=== PATIENT | female | born 1985 | race Caucasian/White ===

== ENCOUNTER 2016-10-14 03:43 | Emergency (ER) | payer OTHER ==
[~2016-10-14] VITALS: Ht 165.1 cm; Wt 83.9 kg
[~2016-10-14 03:43] MED LIST: LEXA1TAB PO; MOTR200T44 PO; PRENTAB7 PO; PRIL40CA PO; TYLE167L PO
[2016-10-14] MEDS ORDERED: WELLTAB40 PO (04:17)
[2016-10-14] MEDS ORDERED: AUGM500T34 PO (05:29)
[2016-10-14] MEDS ORDERED: AUGMENTIN 875 MG TAB PO ONE (05:30)
[2016-10-14 05:36] VITALS: BP 109/66
== END 2016-10-14 05:51 | disposition home or self-care (01) ==
LOC: M ED 05:36
DX: H66.91 Otitis media, unspecified, right ear (principal); F32.1 Major depressive disorder, single episode, moderate

== ENCOUNTER 2016-10-21 21:40 | Emergency (ER) | payer OTHER ==
[~2016-10-21] VITALS: Ht 165.1 cm; Wt 80.7 kg
[~2016-10-21 21:40] MED LIST changes: +AUGM500T34 PO; +WELLTAB40 PO
[2016-10-21] MEDS ORDERED: TRIN1TAB2 (22:00)
[2016-10-21] MEDS ORDERED: BENA25TA9 PO (22:00)
[2016-10-21] MEDS ORDERED: DIFL150T PO (23:28)
[2016-10-21] MEDS ORDERED: FLUCONAZOLE 50MG TABLET PO ONE (23:30)
[2016-10-21 23:38] VITALS: BP 128/83
== END 2016-10-21 23:53 | disposition home or self-care (01) ==
LOC: M ED 23:11
DX: B37.3 Candidiasis of vulva and vagina (principal); J45.909 Unspecified asthma, uncomplicated; F32.9 Major depressive disorder, single episode, unspecified; Z98.84 Bariatric surgery status; Z79.899 Other long term (current) drug therapy; Z79.2 Long term (current) use of antibiotics; Z88.2 Allergy status to sulfonamides